=== PATIENT | female | born 1995 | race African-American/Black ===

== ENCOUNTER 2022-05-30 08:57 | Emergency (ER) | payer MEDICAID ==
[~2022-05-30] VITALS: Ht 162.5 cm; Wt 108.8 kg
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
[2022-05-30 10:44] LABS: BILIRUBIN,URINE NEGATIVE (NEGATIVE); CLARITY,URINE CLEAR; COLOR,URINE YELLOW; GLUCOSE, URINE (UA) NEGATIVE (NEGATIVE); KETONES,URINE 2+ (NEGATIVE); LEUKOCYTE ESTERASE ,URINE 1+ (NEGATIVE); NITRITE,URINE NEGATIVE (NEGATIVE); PROTEIN,URINE NEGATIVE (NEGATIVE)
[2022-05-30 10:54] LABS: BACTERIA,URINE FEW /HPF; WBC,URINE 25-50 /HPF
[2022-05-30] MEDS ORDERED: IBUPROFEN 600 MG (MOTRIN) TAB PO ONE (11:00)
[2022-05-30] MEDS ORDERED: CEPH500T PO (11:01)
[2022-05-30 11:10] VITALS: BP 110/68
== END 2022-05-30 11:10 | disposition home or self-care (01) ==
LOC: ER 09:01
DX: U07.1 COVID-19 (principal); N39.0 Urinary tract infection, site not specified; Z72.0 Tobacco use; Z28.311 Partially vaccinated for COVID-19
CPT/HCPCS: 81000; 87088; 87636; 99283

== ENCOUNTER 2022-10-26 11:37 | Observation (INO) | payer MEDICAID ==
[~2022-10-26] VITALS: Ht 166 cm; Wt 122.5 kg
[~2022-10-26 11:37] MED LIST: CEPH500T PO
[2022-10-26 12:00] LABS: HEMATOCRIT 35 % (35-52); HEMOGLOBIN 11.4 g/dL (11.5-16.0); MEAN CORPUSCULAR HEMOGLOBIN 27 pg (25-34); MEAN CORPUSCULAR HGB CONC 33 g/dL (32-36); MEAN CORPUSCULAR VOLUME 82 fL (80-99); MEAN PLATELET VOLUME 10.3 fL (9.0-12.2); PLATELET COUNT 279 10^3/uL (130-400); WHITE BLOOD COUNT 7.3 10^3/uL (4.3-11.0)
[2022-10-26] MEDS ORDERED: ONDANSETRON 4 MG/2 ML (SDV) Z0FRAN IVP ONE (12:00)
[2022-10-26 12:10] LABS: ALBUMIN 3.5 GM/DL (3.2-4.5); CHLORIDE 106 MMOL/L (98-107); POTASSIUM 3.9 MMOL/L (3.6-5.0); SODIUM 136 MMOL/L (135-145)
[2022-10-26 12:12] LABS: GLUCOSE 81 MG/DL (70-105); TOTAL PROTEIN 6.8 GM/DL (6.4-8.2)
[2022-10-26 12:13] LABS: CARBON DIOXIDE 20 MMOL/L (21-32)
[2022-10-26 12:14] LABS: BILIRUBIN,TOTAL 0.3 MG/DL (0.1-1.0)
[2022-10-26 12:15] LABS: ALKALINE PHOSPHATASE 81 U/L (40-136)
[2022-10-26 12:16] LABS: CREATININE SERUM 0.68 MG/DL (0.60-1.30); GFR ESTIMATED 124
[2022-10-26 12:16] LABS: BILIRUBIN,URINE NEGATIVE (NEGATIVE); CLARITY,URINE CLEAR; COLOR,URINE YELLOW; GLUCOSE, URINE (UA) NEGATIVE (NEGATIVE); KETONES,URINE NEGATIVE (NEGATIVE); LEUKOCYTE ESTERASE ,URINE TRACE (NEGATIVE); NITRITE,URINE NEGATIVE (NEGATIVE); PH,URINE 6.5 (5-9); PROTEIN,URINE NEGATIVE (NEGATIVE)
[2022-10-26 12:17] LABS: BILIRUBIN,DIRECT 0.1 MG/DL (0.0-0.3); BILIRUBIN,INDIRECT 0.2 MG/DL; BUN/CREATININE RATIO 12
[2022-10-26 12:19] LABS: ALANINE AMINOTRANSFERASE 18 U/L (0-55)
[2022-10-26 12:23] LABS: BACTERIA,URINE MODERATE /HPF
[2022-10-26 12:36] LABS: AMPHETAMINE SCREEN, URINE NEGATIVE (NEGATIVE); BARBITURATE SCREEN URINE NEGATIVE (NEGATIVE); BENZODIAZEPINES SCREEN URINE NEGATIVE (NEGATIVE); CANNABINOID SCREEN, URINE POSITIVE (NEGATIVE); COCAINE SCREEN URINE NEGATIVE (NEGATIVE); METHADONE STAT NEGATIVE (NEGATIVE); OPIATE SCREEN URINE NEGATIVE (NEGATIVE); OXYCODONE STAT NEGATIVE (NEGATIVE); PROPOXYPHENE STAT NEGATIVE (NEGATIVE); TRICYCLIC ANTIDEPRESSANTS SCRE NEGATIVE (NEGATIVE)
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
[2022-10-26] MEDS ORDERED: CEPH500T PO (16:20)
[2022-10-26] MEDS ORDERED: CEPHALEXIN 250 MG (KEFLEX) CAP PO ONE (16:30)
[2022-10-26 16:45] VITALS: BP 129/72
== END 2022-10-26 18:05 | disposition home or self-care (01) ==
LOC: EDUNIT# 11:37 → ER 11:38 → LDRP 17:27 → ER 17:27 → LDRP 18:00
PROVIDERS: ADMIT Family Medicine; ATTEND Family Medicine
DX: O26.892 Other specified pregnancy related conditions, second trimester (principal); O23.42 Unspecified infection of urinary tract in pregnancy, second trimester; R10.33 Periumbilical pain; N39.0 Urinary tract infection, site not specified; Z3A.27 27 weeks gestation of pregnancy
CPT/HCPCS: 36415; 76705; 76815; 80048; 80076; 80306; 80320; 81000; 84703; 85027; 87088; 87636; 93041; 96374

== ENCOUNTER 2023-01-20 23:13 | Inpatient (IN) | payer MEDICAID ==
[~2023-01-20] VITALS: Ht 170 cm; Wt 130.7 kg
[2023-01-20 23:30] VITALS: BP 120/77
[2023-01-20] MEDS ORDERED: fentaNYL 2 mcg/ml BUPIVA 0.125 100 ML ONE (23:40)
[2023-01-20] MEDS ORDERED: D5 LR IV SOLUTION 1,000 ML IV SCH (23:45)
[2023-01-20] MEDS ORDERED: MINERAL OIL 30 ML UDC TOP PRN (23:45)
[2023-01-20 23:51] LABS: BASOPHILS % (AUTO) 0 % (0-10); EOSINOPHILS % (AUTO) 0 % (0-10); HEMATOCRIT 36 % (35-52); HEMOGLOBIN 12.1 g/dL (11.5-16.0); LYMPHOCYTES % (AUTO) 31 % (12-44); MEAN CORPUSCULAR HEMOGLOBIN 27 pg (25-34); MEAN CORPUSCULAR HGB CONC 33 g/dL (32-36); MEAN CORPUSCULAR VOLUME 82 fL (80-99); MEAN PLATELET VOLUME 11.1 fL (9.0-12.2); MONOCYTES # (AUTO) 0.7 10^3/uL (0.0-1.0); MONOCYTES % (AUTO) 7 % (0-12); NEUTROPHILS % (AUTO) 62 % (42-75); PLATELET COUNT 313 10^3/uL (130-400); WHITE BLOOD COUNT 9.7 10^3/uL (4.3-11.0)
[2023-01-20 23:55] LABS: BILIRUBIN,URINE NEGATIVE (NEGATIVE); CLARITY,URINE CLEAR; COLOR,URINE YELLOW; GLUCOSE, URINE (UA) NEGATIVE (NEGATIVE); KETONES,URINE TRACE (NEGATIVE); LEUKOCYTE ESTERASE ,URINE NEGATIVE (NEGATIVE); NITRITE,URINE NEGATIVE (NEGATIVE); PH,URINE 6.5 (5-9); PROTEIN,URINE NEGATIVE (NEGATIVE)
[2023-01-20] MEDS ORDERED: D5 LR IV SOLUTION 1,000 ML IV ONE (23:58)
[2023-01-21] VITALS (11 sets, daily range): BP systolic 122–162; BP diastolic 61–88
[2023-01-21] MEDS ORDERED: OXYTOCIN PRE-MIX DRIP 500 ML IV ONE ×2 (00:20→01:41)
[2023-01-21 00:28] LABS: BACTERIA,URINE FEW /HPF; RBC,URINE 0-2 /HPF
[2023-01-21] MEDS ORDERED: KETOROLAC 30 MG/ML VIAL ONE (01:08)
--- NOTE | 2023-01-21 01:40 | History & Physical-OB ---
OB - Chief Complaint & HPI Date/Time Date of Admission: Date of Admission: Jan 20, 2023 at 23:34 Date seen by a Provider: Jan 21, 2023 Time Seen by a Provider: 00:30 Chief Complaint/History OB-Reason for Admission/Chief: Onset of Labor Hx : 4 Hx Para: 2 Expected Date of Delivery: Jan 25, 2023 Gestational Age in Weeks: 39 Gestational Age in Days: 3 Other reason for admission: Ctxs started around 9 PM. Denies LOF or vaginal bleeding. Having mucus discharge. History of Labs AB +, Ab neg, Rub Imm, HIV/RPR/HepB/C NR GTT normal GBS Neg Allergies and Home Medications Allergies Coded Allergies: No Known Drug Allergies (Unverified , 05/30/22) Patient Home Medication List Home Medication List Reviewed: Yes Cephalexin (Cephalexin) 500 Mg Tablet, 500 MG PO TID Prescribed by: BUDDY PLATT on 10/26/22 1620 OB - History Hx of Present Care: Yes Ultrasounds: No ultrasounds Obstetrical Complications: None Medical Complications: None Obstetrical History Hx : 4 Number of Living Children: 2 Patient Past Medical History obesity THC use in Social History/Family History Alcohol Use: Denies Use Recreational Drug Use: Yes (THC) Immunizations First/Initial COVID19 Vaccine: UNK Second COVID19 Vaccination: UNK Third COVID19 Vaccination Date: UNK Tetanus Booster (TDap): Less than 5yrs Rubella: immune RPR/VDRL: Negative GBS Status: Negative HBsAG: Negative OB - Admission Exam Physical Exam HEENT: NCAT Heart: Rhythm Normal Lungs: Clear Abdomen: Gravid Cervical Dilatation: 8cm Effacement: 100% Station: 0 Membranes: Intact Accelerations: Accelerations Present Decelerations: Variable Decelerations Contractions on Admission: < 5 Minutes Apart Intensity: Firm Labs Laboratory Tests Test 01/20/23 22:35 01/20/23 23:35 Range/Units Urine Color YELLOW Urine Clarity CLEAR Urine pH 6.5 5-9 Urine Specific [place] 1.025 H 1.016-1.022 Urine Protein NEGATIVE NEGATIVE Urine Glucose (UA) NEGATIVE NEGATIVE Urine Ketones TRACE H NEGATIVE Urine Nitrite NEGATIVE NEGATIVE Urine Bilirubin NEGATIVE NEGATIVE Urine Urobilinogen 0.2 < = 1.0 MG/DL Urine Leukocyte Esterase NEGATIVE NEGATIVE Urine RBC (Auto) 1+ H NEGATIVE Urine RBC 0-2 /HPF Urine WBC NONE /HPF Urine Squamous Epithelial Cells 5-10 /HPF Urine Crystals NONE /LPF Urine Bacteria FEW H /HPF Urine Casts NONE /LPF Urine Mucus SMALL H /LPF Urine Culture Indicated NO White Blood Count 9.7 4.3-11.0 10^3/uL Red Blood Count 4.46 3.80-5.11 10^6/uL Hemoglobin 12.1 11.5-16.0 g/dL Hematocrit 36 35-52 % Mean Corpuscular Volume 82 80-99 fL Mean Corpuscular Hemoglobin 27 25-34 pg Mean Corpuscular Hemoglobin Concent 33 32-36 g/dL Red Cell Distribution Width 15.0 H 10.0-14.5 % Platelet Count 313 130-400 10^3/uL Mean Platelet Volume 11.1 9.0-12.2 fL Immature Granulocyte % (Auto) 0 % Neutrophils (%) (Auto) 62 42-75 % Lymphocytes (%) (Auto) 31 12-44 % Monocytes (%) (Auto) 7 0-12 % Eosinophils (%) (Auto) 0 0-10 % Basophils (%) (Auto) 0 0-10 % Neutrophils # (Auto) 6.0 1.8-7.8 10^3/uL Lymphocytes # (Auto) 3.0 1.0-4.0 10^3/uL Monocytes # (Auto) 0.7 0.0-1.0 10^3/uL Eosinophils # (Auto) 0.0 0.0-0.3 10^3/uL Basophils # (Auto) 0.0 0.0-0.1 10^3/uL Immature Granulocyte # (Auto) 0.0 0.0-0.1 10^3/uL OB - Assessment/Plan/Diagnosis Assessment Assessment: active labor Admission Dx Third Trimester 39 week gestation Obesity in Admission Status: Inpatient Order (span 2 midnights) Reason for Inpatient Admission: Labor and immediate post care Plan Other Plan 27 yo @ 39.3 wga here for Active labor Plan - GBS neg - Desires epidural - Expectant management Copy Copies To 1: GEORGINA HOGUE MD, HOLLY R MD Jan 21, 2023 01:40
--- NOTE | 2023-01-21 01:45 | OB Labor & Delivery Record ---
Vag Delivery Note Vag Delivery Note Date of Delivery: 01/21/23 Preoperative Diagnosis: Rosio Euceda is a (27 /Para 4/2 , @ 39.3 wga here in Active labor Postoperative Diagnosis: Same Surgeon: GEORGINA HOGUE MD Scanning Manager: None Anesthesia: Natural Delivery Type: @ 0055 Findings: Viable Male infant, apgars 8/9, weight 6#2, 2780 grams Lacerations: None Intact placenta with 3 vessel cord. Nuchal cord x1, No body cord or shoulder dystocia Estimated Blood Loss: 150 ml Complications: None Condition: Stable Description of Procedure: The patient is a 27 year old female who presented in active labor. She was admitted and informed consent was obtained. Her labor course was unremarkable. She progressed to complete dilatation and began to push. She was then set up for delivery. The infant's head was delivered atraumatically in the SANYA position. The shoulders and remainder of the 's body were then delivered without difficulty. Upon delivery, the was vigorous and placed on maternal chest and the mouth and nares were bulb suctioned. After a delay of 3 mins cord was doubly clamped and cut by mother and the remained on maternal chest. An intact placenta with 3-vessel cord delivered via Partha and there was found to be minimal bleeding.~ Vigorous fundal massage was performed and the fundus was found to be firm. IV oxytocin was given. Examination of the vagina and perineum revealed a right periurethral laceration that did not require.Following the repair, sponge, instrument and needle counts were correct. Mom and baby were both in stable condition in the labor suite. Vitals - Labs Labs Laboratory Tests 01/20/23 22:35: Urine Color YELLOW, Urine Clarity CLEAR, Urine pH 6.5, Urine Specific [place] 1.025H, Urine Protein NEGATIVE, Urine Glucose (UA) NEGATIVE, Urine Ketones TRACEH, Urine Nitrite NEGATIVE, Urine Bilirubin NEGATIVE, Urine Urobilinogen 0.2, Urine Leukocyte Esterase NEGATIVE, Urine RBC (Auto) 1+H, Urine RBC 0-2, Urine WBC NONE, Urine Squamous Epithelial Cells 5-10, Urine Crystals NONE, Urine Bacteria FEWH, Urine Casts NONE, Urine Mucus SMALLH, Urine Culture Indicated NO 01/20/23 23:35: White Blood Count 9.7, Red Blood Count 4.46, Hemoglobin 12.1, Hematocrit 36, Mean Corpuscular Volume 82, Mean Corpuscular Hemoglobin 27, Mean Corpuscular Hemoglobin Concent 33, Red Cell Distribution Width 15.0H, Platelet Count 313, Mean Platelet Volume 11.1, Immature Granulocyte % (Auto) 0, Neutrophils (%) (Auto) 62, Lymphocytes (%) (Auto) 31, Monocytes (%) (Auto) 7, Eosinophils (%) (Auto) 0, Basophils (%) (Auto) 0, Neutrophils # (Auto) 6.0, Lymphocytes # (Auto) 3.0, Monocytes # (Auto) 0.7, Eosinophils # (Auto) 0.0, Basophils # (Auto) 0.0, Immature Granulocyte # (Auto) 0.0 GEORGINA HOGUE MD Jan 21, 2023 01:45
[2023-01-21] MEDS: OXYTOCIN PRE-MIX DRIP 500 ML IV SCH ×2 (01:59→02:00)
[2023-01-21] MEDS ORDERED: BENZOCAINE/MENTHOL (DERMOPLAST) 56 ML CAN TP PRN (02:00)
[2023-01-21] MEDS ORDERED: WITCH HAZEL(TUCKS) 40 EA JAR TOP PRN (02:00)
[2023-01-21] MEDS ORDERED: KETOROLAC 30 MG/ML VIAL IVP ONE (02:00)
[2023-01-21] MEDS ORDERED: IBUPROFEN 600 MG (MOTRIN) TAB PO SCH (02:00)
[2023-01-21] MEDS ORDERED: ONDANSETRON 4 MG/2 ML (SDV) Z0FRAN ONE (02:21)
[2023-01-21] MEDS: ACETAMINOPHEN 500 MG TAB (TYLENOL) PO SCH ×4 (02:28→20:23)
[2023-01-21] MEDS ORDERED: ONDANSETRON 4 MG/2 ML (SDV) Z0FRAN IVP ONE (02:30)
[2023-01-21] MEDS ORDERED: CATHETER FLUSH 10 ML SYR IV SCH (06:00)
[2023-01-21] MEDS: DOCUSATE SODIUM 100 MG (COLACE) CAP PO SCH ×2 (08:10→20:22)
[2023-01-21] MEDS: IBUPROFEN 600 MG (MOTRIN) TAB PO SCH ×3 (08:10→17:39)
[2023-01-21] MEDS: PRENATAL VITAMIN 1 EA TAB PO SCH (08:11)
[2023-01-21] MEDS: CATHETER FLUSH 10 ML SYR IV SCH ×3 (08:43→20:55)
[2023-01-22 00:04] VITALS: BP 117/57
[2023-01-22] MEDS: ACETAMINOPHEN 500 MG TAB (TYLENOL) PO SCH ×2 (02:36→09:07)
[2023-01-22] MEDS: CATHETER FLUSH 10 ML SYR IV SCH (03:18)
[2023-01-22 05:59] LABS: BASOPHILS % (AUTO) 0 % (0-10); EOSINOPHILS # (AUTO) 0.1 10^3/uL (0.0-0.3); EOSINOPHILS % (AUTO) 1 % (0-10); HEMATOCRIT 32 % (35-52); HEMOGLOBIN 10.3 g/dL (11.5-16.0); LYMPHOCYTES # (AUTO) 4.7 10^3/uL (1.0-4.0); LYMPHOCYTES % (AUTO) 49 % (12-44); MEAN CORPUSCULAR HEMOGLOBIN 26 pg (25-34); MEAN CORPUSCULAR HGB CONC 33 g/dL (32-36); MEAN CORPUSCULAR VOLUME 81 fL (80-99); MEAN PLATELET VOLUME 10.9 fL (9.0-12.2); MONOCYTES # (AUTO) 0.6 10^3/uL (0.0-1.0); MONOCYTES % (AUTO) 6 % (0-12); NEUTROPHILS # (AUTO) 4.2 10^3/uL (1.8-7.8); NEUTROPHILS % (AUTO) 43 % (42-75); PLATELET COUNT 238 10^3/uL (130-400); WHITE BLOOD COUNT 9.6 10^3/uL (4.3-11.0)
[2023-01-22] MEDS: PRENATAL VITAMIN 1 EA TAB PO SCH (06:14)
[2023-01-22] MEDS: IBUPROFEN 600 MG (MOTRIN) TAB PO SCH ×3 (06:15→12:40)
[2023-01-22 06:19] VITALS: BP 138/80
[2023-01-22] MEDS ORDERED: FERR325T5 PO (07:01)
[2023-01-22] MEDS ORDERED: IBUP-844 PO (07:01)
[2023-01-22] MEDS ORDERED: DOCU100C37 PO (07:01)
[2023-01-22] MEDS ORDERED: PNV1TABL67 PO (07:01)
[2023-01-22 07:56] VITALS: BP 131/76
[2023-01-22] MEDS: DOCUSATE SODIUM 100 MG (COLACE) CAP PO SCH (09:06)
--- NOTE | 2023-01-22 09:51 | Discharge Summary ---
Discharge Summary Hospital Course Hospital Course Date of Admission: Jan 20, 2023 at 23:34 Admission Diagnosis : Active labor at full term Family Physician/Provider: CarmitaLocal Physician Date of Discharge: 01/22/23 Discharge Diagnosis: s/p spontaneous vaginal delivery acute blood loss anemia Hospital Course: 27 yo admitted in active labor, had uncomplicated and routine course with mild asymptomatic anemia treated with oral iron. Labs and Pending Lab Test: Laboratory Tests 01/22/23 05:45: White Blood Count 9.6, Red Blood Count 3.90, Hemoglobin 10.3L, Hematocrit 32L, Mean Corpuscular Volume 81, Mean Corpuscular Hemoglobin 26, Mean Corpuscular Hemoglobin Concent 33, Red Cell Distribution Width 15.0H, Platelet Count 238, Mean Platelet Volume 10.9, Immature Granulocyte % (Auto) 1, Neutrophils (%) (Auto) 43, Lymphocytes (%) (Auto) 49H, Monocytes (%) (Auto) 6, Eosinophils (%) (Auto) 1, Basophils (%) (Auto) 0, Neutrophils # (Auto) 4.2, Lymphocytes # (Auto) 4.7H, Monocytes # (Auto) 0.6, Eosinophils # (Auto) 0.1, Basophils # (Auto) 0.0, Immature Granulocyte # (Auto) 0.1 Home Meds Active Ferrous Sulfate 325 Mg (65 Mg Iron) Tablet.dr 325 Mg PO DAILY Docusate Sodium 100 Mg Capsule 100 Mg PO BID Pnv Plus Multivit Tab (Pnv with Ca,No.72/Iron/FA) 27 Mg Iron-1 Mg Tablet 1 Ea PO DAILY@0700 Ibu (Ibuprofen) 600 Mg Tablet 600 Mg PO Q6H PRN Cephalexin 500 Mg Tablet 500 Mg PO TID Assessment/Pt DC Instructions Follow up with Dr. Powell in 6 weeks Discharge Diet: No Restrictions Activity as Tolerated: Yes (avoid strenuous activity x 6 weeks) Discharge Physical Examination Allergies: Coded Allergies: No Known Drug Allergies (Unverified , 05/30/22) General Appearance: No Apparent Distress, WD/WN Respiratory: Lungs Clear, Normal Breath Sounds Cardiovascular: Regular Rate, Rhythm, No Murmur Skin: Warm/Dry Neurologic/Psychiatric: Alert, Normal Mood/Affect ANY MALONEY MD Jan 22, 2023 09:51
[2023-01-22 12:00] VITALS: BP 136/76
== END 2023-01-22 12:45 | disposition home or self-care (01) | DRG 806 ==
LOC: LDRP 23:13 → WSo 23:13 → LDRP 23:34
PROVIDERS: ADMIT Family Medicine; ATTEND Family Medicine
PROC: 10E0XZZ Delivery of Products of Conception, External Approach (ICD-10-PCS; principal; 2023-01-21)
DX: O99.213 Obesity complicating pregnancy, third trimester (principal); D62 Acute posthemorrhagic anemia; Z37.0 Single live birth; O99.323 Drug use complicating pregnancy, third trimester; F12.90 Cannabis use, unspecified, uncomplicated; O69.81X0 Labor and delivery complicated by cord around neck, without compression, not applicable or unspecified; O71.82 Other specified trauma to perineum and vulva; O90.81 Anemia of the puerperium; Z3A.39 39 weeks gestation of pregnancy
CPT/HCPCS: 36415; 81000; 85025; 86780; 86850; 86900; 86901